=== PATIENT | male | born 1960 | race Caucasian/White ===

== ENCOUNTER 2019-06-12 08:41 | Emergency (ER) | payer OTHER ==
[~2019-06-12] VITALS: Ht 175.3 cm; Wt 90.0 kg
[2019-06-12] MEDS ORDERED: IBUPROFEN 600MG TABLET PO ONE (09:30)
[2019-06-12 11:03] VITALS: BP 199/128
== END 2019-06-12 11:05 | disposition home or self-care (01) ==
LOC: ER 08:41
DX: S22.31XA Fracture of one rib, right side, initial encounter for closed fracture (principal); I10 Essential (primary) hypertension; W01.0XXA Fall on same level from slipping, tripping and stumbling without subsequent striking against object, initial encounter; Y93.9 Activity, unspecified; Y92.9 Unspecified place or not applicable
CPT/HCPCS: 71101; 99283